=== PATIENT | female | born 1965 | race Asian ===

== ENCOUNTER 2025-03-07 22:09 | Outpatient (CLI) | payer OTHER, SELFPAY | END 2025-03-07 22:10 | disposition home or self-care (01) | LOC: AMB 03-15 13:49 | PROVIDERS: Visit Provider Family Medicine | DX: S09.90XA Unspecified injury of head, initial encounter (principal); W18.30XA Fall on same level, unspecified, initial encounter; Y93.89 Activity, other specified; Y92.838 Other recreation area as the place of occurrence of the external cause | CPT/HCPCS: A0425; A0427 ==

== ENCOUNTER 2025-03-07 22:37 | Emergency (ER) | payer OTHER, SELFPAY ==
[2025-03-07] VITALS (12 sets, daily range): BP systolic 139–167; BP diastolic 85–95; PULSE 79–82; RESP 16–23; TEMP 37.1; O2SAT 90–99
--- NOTE | 2025-03-07 22:46 | CRLHL7_ITS ---
For Patients: As a result of the Century Cures Act, medical imaging exams and procedure reports are released immediately into your electronic medical record. You may view this report before your referring provider. If you have questions, please contact your health care provider. INDICATION: Fall TECHNIQUE: Non-contrast CT of the head is submitted. COMPARISON: None. FINDINGS: Trace hyperdensity along the inferior aspect of the falx cerebri (8/35). The ventricles, sulci and gyri are of normal size, shape and contour. Midline structures are centrally located. Basal cisterns are widely patent. Left parietal scalp swelling. No skull fractures. IMPRESSION: Trace hyperdensity along the inferior aspect of the falx cerebri, which may reflect small volume acute subdural hemorrhage. No associated mass effect. These findings were discussed with Dr. Rowland at 11:27 p.m. Please note that all CT scans at this facility use dose modulation, iterative reconstruction, and/or weight-based dosing when appropriate to reduce radiation dose to as low as reasonably achievable. Dictated by Giuseppe Hester MD @ 03/07/2025 11:28:27 PM (Electronically Signed)
--- NOTE | 2025-03-07 22:46 | CRLHL7_ITS ---
For Patients: As a result of the Century Cures Act, medical imaging exams and procedure reports are released immediately into your electronic medical record. You may view this report before your referring provider. If you have questions, please contact your health care provider. INDICATION: Fall. TECHNIQUE: CT cervical spine without contrast. COMPARISON: None. FINDINGS: Vertebrae: Alignment is normal. There are no fractures or suspicious bony lesions. Discs and facet joints: There are diffuse degenerative changes in the disc spaces and facet joints. Extraspinal findings: No acute findings. Postsurgical changes of left hemithyroidectomy. IMPRESSION: 1. No sign of acute injury. 2. Multilevel degenerative spondylosis. Please note that all CT scans at this facility use dose modulation, iterative reconstruction, and/or weight-based dosing when appropriate to reduce radiation dose to as low as reasonably achievable. Dictated by Giuseppe Hester MD @ 03/07/2025 11:30:22 PM (Electronically Signed)
[2025-03-07] MEDS: MORPHINE 4 MG/ML INJ IVP (23:23)
--- NOTE | 2025-03-07 23:36 | ED.FALL ---
HPI - Fall General Date Seen: 03/07/25 <Blake Rowland DO - Last Filed: 03/08/25 00:03> Chief Complaint: Fall/Minor Trauma <Blake Rowland DO - Last Filed: 03/08/25 00:03> Stated Complaint: fall <Blake Rowland DO - Last Filed: 03/08/25 00:03> Time Seen by Provider: 03/07/25 22:46 <Blake Rowland DO - Last Filed: 03/08/25 00:03> Source: patient, family and EMS <Blake Rowland DO - Last Filed: 03/08/25 00:03> Mode of arrival: EMS <Blake Rowland DO - Last Filed: 03/08/25 00:03> Limitations: no limitations <Blake Rowland DO - Last Filed: 03/08/25 00:03> Related Data Home Medications: Home Medications ?Medication ?Instructions ?Recorded ?Confirmed amlodipine 5 mg tablet 5 mg PO DAILY 03/07/25 03/07/25 fluoxetine 40 mg capsule 40 mg PO DAILY 03/07/25 03/07/25 hydrochlorothiazide 25 mg tablet 25 mg PO DAILY 03/07/25 03/07/25 hydroxyzine HCl 10 mg tablet 10 mg PO QHS 03/07/25 03/07/25 losartan 100 mg tablet (Cozaar) 100 mg PO DAILY 03/07/25 03/07/25 modafinil 100 mg tablet 100 mg PO BID PRN 03/07/25 03/07/25 tirzepatide (weight loss) 2.5 2.5 mg subcut 03/07/25 mg/0.5 mL subcutaneous pen injector (Zepbound) tirzepatide 7.5 mg/0.5 mL 7.5 mg subcut QWEEK 03/07/25 03/07/25 subcutaneous pen injector <Blake Rowland DO - Last Filed: 03/08/25 00:03> Allergies/Adverse Reactions: Allergies Allergy/AdvReac Type Severity Reaction Status Date / Time No Known Drug Allergies Allergy Verified 03/07/25 23:49 <Blake Rowland DO - Last Filed: 03/08/25 00:03> PFSH PFSH Social History: Social History Smoking Status: Never smoker Do you use any of these nicotine containing products: None Second hand tobacco smoke exposure: No How often do you have a drink containing alcohol: never How often do you have six or more drinks on one occasion: Never AUDIT-C Alcohol total score: 0 Non-prescribed substance use: denies use service: No <Blake Rowland DO - Last Filed: 03/08/25 00:03> Exam Narrative: Exam Narrative: Airway: Airway patent, Breathing: Good bilateral air movement, no signs of tracheal deviation normal appearing chest wall movement, oxygenating appropriately Circulation: No signs of obvious hemorrhage, pulses +2 bilaterally in all extremities Disability: GCS 15 Constitutional: Pt is oriented to person, place, and time. Pt appears well-developed and well-nourished. HENT: Head: Normocephalic and atraumatic. Mouth/Throat: Oropharynx is clear and moist. No hematomas or lacerations or abrasions to face or scalp OP clear, no blood, no malocclusion, dentition intact Nares clear, no nasal septal hematoma TMs clear, no hemotympanum Midface stable Eyes: Conjunctivae and EOM are normal. Pupils are equal, round, and reactive to light. Neck: C-spine midline nontender, no step-offs Cardiovascular: Normal rate, regular rhythm and normal heart sounds. Pulmonary/Chest: Effort normal and breath sounds normal. No respiratory distress. He has no wheezes. CTA bilaterally Abdominal: Soft. Bowel sounds are normal. Pt exhibits no distension. There is no tenderness. Musculoskeletal: No bony tenderness to extremities, no deformities, full ROM extremities, Chest wall stable, Pelvis stable and non-tender, mild midline cervical tenderness. No step-offs. No tenderness or step-offs noted to rest of spine Neurological: Pt is alert and oriented to person, place, and time., Moving all extremities willfully, able to wiggle all fingers and toes, Sensation grossly intact, GCS 15 Skin: Skin is warm and dry. No abrasions, no lacerations Psychiatric: Behavior is appropriate for situation <Blake Rowland DO - Last Filed: 03/08/25 00:03> Const: Vital Signs, click to edit/add: Vital Signs - 24 hr 03/07/25 22:47 03/07/25 23:13 03/07/25 23:20 Temperature 98.8 F Pulse Rate 82 Pulse Rate [Left P ulse Oximeter] 79 81 Respiratory Rate 20 18 22 Blood Pressure Blood Pressure [Le ft Upper Arm] 167/95 H 142/92 H Pulse Oximetry 96 97 98 Oxygen Delivery Me thod Room Air Room Air 03/07/25 23:22 03/07/25 23:30 03/07/25 23:31 Temperature Pulse Rate 82 81 82 Pulse Rate [Left P ulse Oximeter] Respiratory Rate 23 18 Blood Pressure 139/87 149/92 H Blood Pressure [Le ft Upper Arm] Pulse Oximetry 99 95 90 Oxygen Delivery Me thod 03/07/25 23:40 03/07/25 23:42 03/07/25 23:44 Temperature Pulse Rate 80 81 Pulse Rate [Left P ulse Oximeter] 81 Respiratory Rate 20 16 Blood Pressure 150/90 H Blood Pressure [Le ft Upper Arm] 150/90 H Pulse Oximetry 96 96 97 Oxygen Delivery Me od Room Air 03/07/25 23:50 03/07/25 23:52 03/07/25 23:57 Temperature Pulse Rate 80 80 Pulse Rate [Left P ulse Oximeter] 80 Respiratory Rate 16 Blood Pressure 142/85 H Blood Pressure [Le ft Upper Arm] 142/85 H Pulse Oximetry 94 97 97 Oxygen Delivery Me thod Room Air 03/08/25 00:00 03/08/25 00:01 03/08/25 00:01 Temperature Pulse Rate 82 81 81 Pulse Rate [Left P ulse Oximeter] Respiratory Rate 17 13 13 Blood Pressure 144/89 H 144/89 H Blood Pressure [Le ft Upper Arm] Pulse Oximetry 97 98 98 Oxygen Delivery Me thod 03/08/25 00:01 03/08/25 00:10 03/08/25 00:12 Temperature Pulse Rate 81 80 77 Pulse Rate [Left P ulse Oximeter] Respiratory Rate 13 24 Blood Pressure 144/89 H 144/86 H Blood Pressure [Le ft Upper Arm] Pulse Oximetry 98 94 94 Oxygen Delivery Me thod 03/08/25 00:20 03/08/25 00:22 03/08/25 00:30 Temperature Pulse Rate 80 82 79 Pulse Rate [Left P ulse Oximeter] Respiratory Rate Blood Pressure 142/84 H Blood Pressure [Le ft Upper Arm] Pulse Oximetry 94 95 97 Oxygen Delivery Me thod 03/08/25 00:32 03/08/25 00:34 03/08/25 00:40 Temperature Pulse Rate 80 80 Pulse Rate [Left P ulse Oximeter] 78 Respiratory Rate 16 Blood Pressure 141/88 H Blood Pressure [Le ft Upper Arm] 141/88 H Pulse Oximetry 94 98 95 Oxygen Delivery Me thod Room Air 03/08/25 00:41 03/08/25 00:50 03/08/25 00:52 Temperature Pulse Rate 79 81 75 Pulse Rate [Left P ulse Oximeter] Respiratory Rate Blood Pressure 142/88 H 157/93 H Blood Pressure [Le ft Upper Arm] Pulse Oximetry 95 95 96 Oxygen Delivery Me thod 03/08/25 01:00 03/08/25 01:02 03/08/25 01:05 Temperature Pulse Rate 80 82 Pulse Rate [Left P ulse Oximeter] 80 Respiratory Rate 16 Blood Pressure 156/92 H Blood Pressure [Le ft Upper Arm] 156/92 H Pulse Oximetry 98 95 97 Oxygen Delivery Me od Room Air 03/08/25 01:10 03/08/25 01:12 03/08/25 01:20 Temperature Pulse Rate 83 80 82 Pulse Rate [Left P ulse Oximeter] Respiratory Rate Blood Pressure 139/85 Blood Pressure [Le ft Upper Arm] Pulse Oximetry 93 96 93 Oxygen Delivery Me od 03/08/25 01:21 03/08/25 01:30 03/08/25 01:31 Temperature Pulse Rate 83 82 83 Pulse Rate [Left P ulse Oximeter] Respiratory Rate Blood Pressure 138/84 133/78 Blood Pressure [Le ft Upper Arm] Pulse Oximetry 93 94 96 Oxygen Delivery Me od 03/08/25 01:40 03/08/25 01:42 03/08/25 01:50 Temperature Pulse Rate 88 86 86 Pulse Rate [Left P ulse Oximeter] Respiratory Rate Blood Pressure 134/81 Blood Pressure [Le ft Upper Arm] Pulse Oximetry 94 92 92 Oxygen Delivery Me thod 03/08/25 01:52 03/08/25 02:00 03/08/25 02:02 Temperature Pulse Rate 84 85 90 Pulse Rate [Left P ulse Oximeter] Respiratory Rate Blood Pressure 130/79 134/77 Blood Pressure [Le ft Upper Arm] Pulse Oximetry 93 94 92 Oxygen Delivery Me thod 03/08/25 02:10 03/08/25 02:12 03/08/25 02:20 Temperature Pulse Rate 93 90 86 Pulse Rate [Left P ulse Oximeter] Respiratory Rate 13 Blood Pressure 129/76 Blood Pressure [Le ft Upper Arm] Pulse Oximetry 92 91 96 Oxygen Delivery Me thod 03/08/25 02:22 03/08/25 02:30 03/08/25 02:32 Temperature Pulse Rate 88 89 88 Pulse Rate [Left P ulse Oximeter] Respiratory Rate 17 Blood Pressure 125/83 125/85 Blood Pressure [Le ft Upper Arm] Pulse Oximetry 96 93 93 Oxygen Delivery Me thod 03/08/25 02:40 03/08/25 02:41 03/08/25 02:50 Temperature Pulse Rate 89 88 86 Pulse Rate [Left P ulse Oximeter] Respiratory Rate Blood Pressure 146/85 H Blood Pressure [Le ft Upper Arm] Pulse Oximetry 94 91 92 Oxygen Delivery Me thod 03/08/25 02:52 03/08/25 03:00 03/08/25 03:02 Temperature Pulse Rate 83 84 84 Pulse Rate [Left P ulse Oximeter] Respiratory Rate Blood Pressure 152/89 H 164/80 H Blood Pressure [Le ft Upper Arm] Pulse Oximetry 94 93 92 Oxygen Delivery Me thod 03/08/25 03:10 03/08/25 03:12 03/08/25 03:13 Temperature Pulse Rate 86 86 89 Pulse Rate [Left P ulse Oximeter] Respiratory Rate 20 Blood Pressure 133/83 Blood Pressure [Le ft Upper Arm] Pulse Oximetry 94 93 94 Oxygen Delivery Me thod 03/08/25 03:20 03/08/25 03:22 03/08/25 03:30 Temperature Pulse Rate 84 82 82 Pulse Rate [Left P ulse Oximeter] Respiratory Rate 23 18 Blood Pressure 164/96 H Blood Pressure [Le ft Upper Arm] Pulse Oximetry 92 94 91 Oxygen Delivery Me thod 03/08/25 03:32 03/08/25 03:40 03/08/25 03:41 Temperature Pulse Rate 81 81 80 Pulse Rate [Left P ulse Oximeter] Respiratory Rate Blood Pressure 152/89 H 154/93 H Blood Pressure [Le ft Upper Arm] Pulse Oximetry 92 93 92 Oxygen Delivery Me thod 03/08/25 03:50 03/08/25 03:52 03/08/25 04:00 Temperature Pulse Rate 81 80 81 Pulse Rate [Left P ulse Oximeter] Respiratory Rate 15 18 Blood Pressure 155/94 H Blood Pressure [Le ft Upper Arm] Pulse Oximetry 95 96 93 Oxygen Delivery Me thod 03/08/25 04:02 03/08/25 04:10 03/08/25 04:11 Temperature Pulse Rate 77 83 80 Pulse Rate [Left P ulse Oximeter] Respiratory Rate 15 20 20 Blood Pressure 146/94 H 153/84 H Blood Pressure [Le ft Upper Arm] Pulse Oximetry 94 91 93 Oxygen Delivery Me thod 03/08/25 04:20 03/08/25 04:22 03/08/25 04:30 Temperature Pulse Rate 77 77 77 Pulse Rate [Left P ulse Oximeter] Respiratory Rate 19 Blood Pressure 162/83 H Blood Pressure [Le ft Upper Arm] Pulse Oximetry 91 93 94 Oxygen Delivery Me thod 03/08/25 04:31 03/08/25 04:40 03/08/25 04:41 Temperature Pulse Rate 75 76 79 Pulse Rate [Left P ulse Oximeter] Respiratory Rate 20 22 19 Blood Pressure 166/79 H 148/75 H Blood Pressure [Le ft Upper Arm] Pulse Oximetry 95 92 95 Oxygen Delivery Me thod 03/08/25 04:50 03/08/25 04:52 03/08/25 05:00 Temperature Pulse Rate 81 76 77 Pulse Rate [Left P ulse Oximeter] Respiratory Rate 20 22 Blood Pressure 135/91 H Blood Pressure [Le ft Upper Arm] Pulse Oximetry 96 91 91 Oxygen Delivery Me thod 03/08/25 05:02 03/08/25 05:10 03/08/25 05:22 Temperature Pulse Rate 72 75 Pulse Rate [Left P ulse Oximeter] Respiratory Rate 20 20 Blood Pressure 119/93 H Blood Pressure [Le ft Upper Arm] Pulse Oximetry 95 93 Oxygen Delivery Me thod 03/08/25 05:23 Temperature Pulse Rate 65 Pulse Rate [Left P ulse Oximeter] Respiratory Rate 18 Blood Pressure 137/84 Blood Pressure [Le ft Upper Arm] Pulse Oximetry 93 Oxygen Delivery Me thod <Blake Rowland, - Last Filed: 03/08/25 00:03> Vital Signs, click to edit/add: Vital Signs - 24 hr 03/07/25 22:47 03/07/25 23:13 03/07/25 23:20 Temperature 98.8 F Pulse Rate 82 Pulse Rate [Left P ulse Oximeter] 79 81 Respiratory Rate 20 18 22 Blood Pressure Blood Pressure [Le ft Upper Arm] 167/95 H 142/92 H Pulse Oximetry 96 97 98 Oxygen Delivery Me thod Room Air Room Air 03/07/25 23:22 03/07/25 23:30 03/07/25 23:31 Temperature Pulse Rate 82 81 82 Pulse Rate [Left P ulse Oximeter] Respiratory Rate 23 18 Blood Pressure 139/87 149/92 H Blood Pressure [Le ft Upper Arm] Pulse Oximetry 99 95 90 Oxygen Delivery Me thod 03/07/25 23:40 03/07/25 23:42 03/07/25 23:44 Temperature Pulse Rate 80 81 Pulse Rate [Left P ulse Oximeter] 81 Respiratory Rate 20 16 Blood Pressure 150/90 H Blood Pressure [Le ft Upper Arm] 150/90 H Pulse Oximetry 96 96 97 Oxygen Delivery Me od Room Air 03/07/25 23:50 03/07/25 23:52 03/07/25 23:57 Temperature Pulse Rate 80 80 Pulse Rate [Left P ulse Oximeter] 80 Respiratory Rate 16 Blood Pressure 142/85 H Blood Pressure [Le ft Upper Arm] 142/85 H Pulse Oximetry 94 97 97 Oxygen Delivery Me thod Room Air 03/08/25 00:00 03/08/25 00:01 03/08/25 00:01 Temperature Pulse Rate 82 81 81 Pulse Rate [Left P ulse Oximeter] Respiratory Rate 17 13 13 Blood Pressure 144/89 H 144/89 H Blood Pressure [Le ft Upper Arm] Pulse Oximetry 97 98 98 Oxygen Delivery Me thod 03/08/25 00:01 03/08/25 00:10 03/08/25 00:12 Temperature Pulse Rate 81 80 77 Pulse Rate [Left P ulse Oximeter] Respiratory Rate 13 24 Blood Pressure 144/89 H 144/86 H Blood Pressure [Le ft Upper Arm] Pulse Oximetry 98 94 94 Oxygen Delivery Me thod 03/08/25 00:20 03/08/25 00:22 03/08/25 00:30 Temperature Pulse Rate 80 82 79 Pulse Rate [Left P ulse Oximeter] Respiratory Rate Blood Pressure 142/84 H Blood Pressure [Le ft Upper Arm] Pulse Oximetry 94 95 97 Oxygen Delivery Me thod 03/08/25 00:32 03/08/25 00:34 03/08/25 00:40 Temperature Pulse Rate 80 80 Pulse Rate [Left P ulse Oximeter] 78 Respiratory Rate 16 Blood Pressure 141/88 H Blood Pressure [Le ft Upper Arm] 141/88 H Pulse Oximetry 94 98 95 Oxygen Delivery Me thod Room Air 03/08/25 00:41 03/08/25 00:50 03/08/25 00:52 Temperature Pulse Rate 79 81 75 Pulse Rate [Left P ulse Oximeter] Respiratory Rate Blood Pressure 142/88 H 157/93 H Blood Pressure [Le ft Upper Arm] Pulse Oximetry 95 95 96 Oxygen Delivery Me thod 03/08/25 01:00 03/08/25 01:02 03/08/25 01:05 Temperature Pulse Rate 80 82 Pulse Rate [Left P ulse Oximeter] 80 Respiratory Rate 16 Blood Pressure 156/92 H Blood Pressure [Le ft Upper Arm] 156/92 H Pulse Oximetry 98 95 97 Oxygen Delivery Me thod Room Air 03/08/25 01:10 03/08/25 01:12 03/08/25 01:20 Temperature Pulse Rate 83 80 82 Pulse Rate [Left P ulse Oximeter] Respiratory Rate Blood Pressure 139/85 Blood Pressure [Le ft Upper Arm] Pulse Oximetry 93 96 93 Oxygen Delivery Me thod 03/08/25 01:21 03/08/25 01:30 03/08/25 01:31 Temperature Pulse Rate 83 82 83 Pulse Rate [Left P ulse Oximeter] Respiratory Rate Blood Pressure 138/84 133/78 Blood Pressure [Le ft Upper Arm] Pulse Oximetry 93 94 96 Oxygen Delivery Me thod 03/08/25 01:40 03/08/25 01:42 03/08/25 01:50 Temperature Pulse Rate 88 86 86 Pulse Rate [Left P ulse Oximeter] Respiratory Rate Blood Pressure 134/81 Blood Pressure [Le ft Upper Arm] Pulse Oximetry 94 92 92 Oxygen Delivery Me thod 03/08/25 01:52 03/08/25 02:00 03/08/25 02:02 Temperature Pulse Rate 84 85 90 Pulse Rate [Left P ulse Oximeter] Respiratory Rate Blood Pressure 130/79 134/77 Blood Pressure [Le ft Upper Arm] Pulse Oximetry 93 94 92 Oxygen Delivery Me thod 03/08/25 02:10 03/08/25 02:12 03/08/25 02:20 Temperature Pulse Rate 93 90 86 Pulse Rate [Left P ulse Oximeter] Respiratory Rate 13 Blood Pressure 129/76 Blood Pressure [Le ft Upper Arm] Pulse Oximetry 92 91 96 Oxygen Delivery Me thod 03/08/25 02:22 03/08/25 02:30 03/08/25 02:32 Temperature Pulse Rate 88 89 88 Pulse Rate [Left P ulse Oximeter] Respiratory Rate 17 Blood Pressure 125/83 125/85 Blood Pressure [Le ft Upper Arm] Pulse Oximetry 96 93 93 Oxygen Delivery Me thod 03/08/25 02:40 03/08/25 02:41 03/08/25 02:50 Temperature Pulse Rate 89 88 86 Pulse Rate [Left P ulse Oximeter] Respiratory Rate Blood Pressure 146/85 H Blood Pressure [Le ft Upper Arm] Pulse Oximetry 94 91 92 Oxygen Delivery Me thod 03/08/25 02:52 03/08/25 03:00 03/08/25 03:02 Temperature Pulse Rate 83 84 84 Pulse Rate [Left P ulse Oximeter] Respiratory Rate Blood Pressure 152/89 H 164/80 H Blood Pressure [Le ft Upper Arm] Pulse Oximetry 94 93 92 Oxygen Delivery Me thod 03/08/25 03:10 03/08/25 03:12 03/08/25 03:13 Temperature Pulse Rate 86 86 89 Pulse Rate [Left P ulse Oximeter] Respiratory Rate 20 Blood Pressure 133/83 Blood Pressure [Le ft Upper Arm] Pulse Oximetry 94 93 94 Oxygen Delivery Me thod 03/08/25 03:20 03/08/25 03:22 03/08/25 03:30 Temperature Pulse Rate 84 82 82 Pulse Rate [Left P ulse Oximeter] Respiratory Rate 23 18 Blood Pressure 164/96 H Blood Pressure [Le ft Upper Arm] Pulse Oximetry 92 94 91 Oxygen Delivery Me thod 03/08/25 03:32 03/08/25 03:40 03/08/25 03:41 Temperature Pulse Rate 81 81 80 Pulse Rate [Left P ulse Oximeter] Respiratory Rate Blood Pressure 152/89 H 154/93 H Blood Pressure [Le ft Upper Arm] Pulse Oximetry 92 93 92 Oxygen Delivery Me thod 03/08/25 03:50 03/08/25 03:52 03/08/25 04:00 Temperature Pulse Rate 81 80 81 Pulse Rate [Left P ulse Oximeter] Respiratory Rate 15 18 Blood Pressure 155/94 H Blood Pressure [Le ft Upper Arm] Pulse Oximetry 95 96 93 Oxygen Delivery Me thod 03/08/25 04:02 03/08/25 04:10 03/08/25 04:11 Temperature Pulse Rate 77 83 80 Pulse Rate [Left P ulse Oximeter] Respiratory Rate 15 20 20 Blood Pressure 146/94 H 153/84 H Blood Pressure [Le ft Upper Arm] Pulse Oximetry 94 91 93 Oxygen Delivery Me thod 03/08/25 04:20 03/08/25 04:22 03/08/25 04:30 Temperature Pulse Rate 77 77 77 Pulse Rate [Left P ulse Oximeter] Respiratory Rate 19 Blood Pressure 162/83 H Blood Pressure [Le ft Upper Arm] Pulse Oximetry 91 93 94 Oxygen Delivery Me thod 03/08/25 04:31 03/08/25 04:40 03/08/25 04:41 Temperature Pulse Rate 75 76 79 Pulse Rate [Left P ulse Oximeter] Respiratory Rate 20 22 19 Blood Pressure 166/79 H 148/75 H Blood Pressure [Le ft Upper Arm] Pulse Oximetry 95 92 95 Oxygen Delivery Me thod 03/08/25 04:50 03/08/25 04:52 03/08/25 05:00 Temperature Pulse Rate 81 76 77 Pulse Rate [Left P ulse Oximeter] Respiratory Rate 20 22 Blood Pressure 135/91 H Blood Pressure [Le ft Upper Arm] Pulse Oximetry 96 91 91 Oxygen Delivery Me thod 03/08/25 05:02 03/08/25 05:10 03/08/25 05:22 Temperature Pulse Rate 72 75 Pulse Rate [Left P ulse Oximeter] Respiratory Rate 20 20 Blood Pressure 119/93 H Blood Pressure [Le ft Upper Arm] Pulse Oximetry 95 93 Oxygen Delivery Me thod 03/08/25 05:23 Temperature Pulse Rate 65 Pulse Rate [Left P ulse Oximeter] Respiratory Rate 18 Blood Pressure 137/84 Blood Pressure [Le ft Upper Arm] Pulse Oximetry 93 Oxygen Delivery Me thod <Kirit Huertas MD - Last Filed: 03/08/25 06:12> Course Reevaluation(s) Time of Reevaluation #2: 23:51 <Kirit Huertas MD - Last Filed: 03/08/25 06:12> Reevaluation #2: Sign-out from Dr. Rowland. Briefly 60-year-old female not on blood thinners who fell about 3 ft, hit her head, has a small subdural. Care was discussed with Neurosurgery, recommends repeat head CT in 6 hours and if stable patient can be discharged with outpatient follow-up. Blood pressure to be maintained with systolic less than 160, blood head of bed elevated 30?. <Kirit Huertas MD - Last Filed: 03/08/25 06:12> Time of Reevaluation #3: 06:04 <Kirit Huertas MD - Last Filed: 03/08/25 06:12> Reevaluation #3: Repeat head CT demonstrates improved but persistent interhemispheric subdural hematoma. Care discussed with [facility] neuro surgery who recommends primary care follow-up and referral to TBI/concussion Clinic if needed. <Kirit Huertas MD - Last Filed: 03/08/25 06:12> Vital Signs Vital signs: Initial Vital Signs Temperature 98.8 F 03/07/25 22:47 Temperature Source Temporal Artery Scan 03/07/25 22:47 Pulse Rate 79 03/07/25 22:47 Respiratory Rate 20 03/07/25 22:47 Blood Pressure 167/95 H 03/07/25 22:47 Blood Pressure Mean 119 H 03/07/25 22:47 Pulse Oximetry 96 03/07/25 22:47 Oxygen Delivery Method Room Air 03/07/25 22:47 Vital Signs Temperature 98.8 F 03/07/25 22:47 Pulse Rate 79 03/07/25 22:47 Respiratory Rate 20 03/07/25 22:47 Blood Pressure 167/95 H 03/07/25 22:47 Pulse Oximetry 96 03/07/25 22:47 Oxygen Delivery Method Room Air 03/07/25 22:47 Temperature 98.8 F 03/07/25 22:47 Pulse Rate 65 03/08/25 05:23 Respiratory Rate 18 03/08/25 05:23 Blood Pressure 137/84 03/08/25 05:23 Pulse Oximetry 93 03/08/25 05:23 Oxygen Delivery Method Room Air 03/08/25 01:05 <Blake Rowland DO - Last Filed: 03/08/25 00:03> Initial Vital Signs Temperature 98.8 F 03/07/25 22:47 Temperature Source Temporal Artery Scan 03/07/25 22:47 Pulse Rate 79 03/07/25 22:47 Respiratory Rate 20 03/07/25 22:47 Blood Pressure 167/95 H 03/07/25 22:47 Blood Pressure Mean 119 H 03/07/25 22:47 Pulse Oximetry 96 03/07/25 22:47 Oxygen Delivery Method Room Air 03/07/25 22:47 Vital Signs Temperature 98.8 F 03/07/25 22:47 Pulse Rate 79 03/07/25 22:47 Respiratory Rate 20 03/07/25 22:47 Blood Pressure 167/95 H 03/07/25 22:47 Pulse Oximetry 96 03/07/25 22:47 Oxygen Delivery Method Room Air 03/07/25 22:47 Temperature 98.8 F 03/07/25 22:47 Pulse Rate 65 03/08/25 05:23 Respiratory Rate 18 03/08/25 05:23 Blood Pressure 137/84 03/08/25 05:23 Pulse Oximetry 93 03/08/25 05:23 Oxygen Delivery Method Room Air 03/08/25 01:05 <Kirit Huertas MD - Last Filed: 03/08/25 06:12> Medications Administered Medications: Generic Name Dose Route Start Last Admin Trade Name Freq PRN Reason Stop Dose Admin Morphine Sulfate 4 mg 03/08/25 03:19 03/08/25 03:22 Morphine 4 Mg/Ml Inj IVP 4 mg Q4H PRN Administration pain Discontinued Medications Generic Name Dose Route Start Last Admin Trade Name Freq PRN Reason Stop Dose Admin Morphine Sulfate 4 mg 03/07/25 23:20 03/07/25 23:23 Morphine 4 Mg/Ml Inj IVP 03/07/25 23:21 4 mg ONCE ONE Administration <Blake Rowland DO - Last Filed: 03/08/25 00:03> Generic Name Dose Route Start Last Admin Trade Name Freq PRN Reason Stop Dose Admin Morphine Sulfate 4 mg 03/08/25 03:19 03/08/25 03:22 Morphine 4 Mg/Ml Inj IVP 4 mg Q4H PRN Administration pain Discontinued Medications Generic Name Dose Route Start Last Admin Trade Name Freq PRN Reason Stop Dose Admin Morphine Sulfate 4 mg 03/07/25 23:20 03/07/25 23:23 Morphine 4 Mg/Ml Inj IVP 03/07/25 23:21 4 mg ONCE ONE Administration <Kirit Huertas MD - Last Filed: 03/08/25 06:12> MDM - Fall MDM Narrative Medical decision making narrative: Patient is a 60-year-old female presenting to the emergency department after a fall. EMS states she was initially disoriented but has since been acting normally. Her is at bedside states she is acting at her baseline. She states her only pain at this time is to her neck. Also states she has some pain to the back of her head. Rest may exam shows no concerning abnormalities. I will do CT scan of her head and cervical spine. She was starting to complain more what pain and morphine was given. CT scan of the cervical spine shows no acute concerning abnormalities. CT scan of the head shows a possible small subdural hematoma. She is not having any neurological symptoms at this time. I did speak to the trauma surgeon at [facility], the patient's preferential destination if she would be transferred, and was informed to repeat head CT in 6 hours and if it is normal and she is not having any further symptoms she can follow-up outpatient. She will be signed out to my colleague <Blake Rowland, - Last Filed: 03/08/25 00:03> Imaging Data CT scan - head: Attestation: I have reviewed the pertinent imaging results. <Blake Rowland DO - Last Filed: 03/08/25 00:03> Radiologist's impression: Trace hyperdensity along the inferior aspect of the falx cerebri, which may reflect small volume acute subdural hemorrhage. No associated mass effect. These findings were discussed with Dr. Rowland at 11:27 p.m. Please note that all CT scans at this facility use dose modulation, iterative reconstruction, and/or weight-based dosing when appropriate to reduce radiation dose to as low as reasonably achievable. Dictated by Giuseppe Hester MD @ 03/07/2025 11:28:27 PM <Blake Rowland DO - Last Filed: 03/08/25 00:03> CT scan cervical spine: Attestation: I have reviewed the pertinent imaging results. <Blake Rowland DO - Last Filed: 03/08/25 00:03> Radiologist's impression: 1. No sign of acute injury. 2. Multilevel degenerative spondylosis. Please note that all CT scans at this facility use dose modulation, iterative reconstruction, and/or weight-based dosing when appropriate to reduce radiation dose to as low as reasonably achievable. Dictated by Giuseppe Hester MD @ 03/07/2025 11:30:22 PM <Blake Rowland DO - Last Filed: 03/08/25 00:03> Critical Care Time Critical Care Time Critical Care Time: Yes (Intracranial hemorrhage) Attestation: The patient required my highest level preparedness to intervene emergently and I personally spent this critical care time directly and personally managing the patient. This critical care time included: Obtaining a history; Examining the patient; Pulse oximetry; Ordering and reviewing of studies; Arranging urgent treatment with development of a management plan; Evaluation of patients response to treatment; Frequent reassessment discussions with other providers. This critical care time was performed to assess and manage the high probability of imminent life-threatening deterioration that could result in multiorgan failure. It was exclusive of separate billable procedures and treating other patients and teaching time. <Kirit Huertas MD - Last Filed: 03/08/25 06:12> Total Critical Care Time in Minutes: 35 <Blake Rowland DO - Last Filed: 03/08/25 00:03> 50 <Kirit Huertas MD - Last Filed: 03/08/25 06:12> Discharge Plan Discharge Clinical Impression: Acute subdural hematoma, Fall <Blake Rowland DO - Last Filed: 03/08/25 00:03> Patient Disposition: Home, Self-Care <Blake Rowland DO - Last Filed: 03/08/25 00:03> Condition: Stable <Blake Rowland DO - Last Filed: 03/08/25 00:03> Instructions: Fall Prevention (ED) <Blake Rowland DO - Last Filed: 03/08/25 00:03> Additional Instructions: It appears that you have a small brain bleed called a subdural hematoma. On your repeat CT scan it has decreased in size. You can go home today. Take Tylenol as needed for pain, avoid aspirin. You may take oxycodone as prescribed for more severe pain. Follow-up with your primary care provider this week. <Blake Rowland DO - Last Filed: 03/08/25 00:03> Activity Level: Activity as Tolerated <Blake Rowland DO - Last Filed: 03/08/25 00:03> Activity as Tolerated <Kirit Huertas MD - Last Filed: 03/08/25 06:12> Discharge Diet: Regular <Blake Rowland DO - Last Filed: 03/08/25 00:03> Regular <Kirit Huertas MD - Last Filed: 03/08/25 06:12> Prescriptions: No Action hydrochlorothiazide 25 mg tablet 25 mg PO DAILY modafinil 100 mg tablet 100 mg PO BID PRN fluoxetine 40 mg capsule 40 mg PO DAILY amlodipine 5 mg tablet 5 mg PO DAILY losartan [Cozaar] 100 mg tablet 100 mg PO DAILY hydroxyzine HCl 10 mg tablet 10 mg PO QHS tirzepatide 7.5 mg/0.5 mL pen injector 7.5 mg subcut QWEEK Zepbound 2.5 mg/0.5 mL pen injector 2.5 mg subcut <Blake Rowland DO - Last Filed: 03/08/25 00:03> Follow Up/Referrals: Provider,Not a Local [Primary Care Provider, Family Practice] <Blake Rowland DO - Last Filed: 03/08/25 00:03> Stand Alone Forms: My[facility] Info Instructions <Blake Rowland DO - Last Filed: 03/08/25 00:03>
[2025-03-08] VITALS (68 sets, daily range): BP systolic 119–166; BP diastolic 75–96; PULSE 65–93; RESP 13–24; O2SAT 91–98
[2025-03-08] MEDS: MORPHINE 4 MG/ML INJ IVP (03:22)
--- NOTE | 2025-03-08 05:00 | CRLHL7_ITS ---
For Patients: As a result of the Century Cures Act, medical imaging exams and procedure reports are released immediately into your electronic medical record. You may view this report before your referring provider. If you have questions, please contact your health care provider. INDICATION: Follow-up subdural hematoma COMPARISON: March 07, 2025 TECHNIQUE: CT examination of the head was performed as axial sections without intravenous contrast. Images were obtained from the vertex of the skull through the skull base. The study was performed March 08, 2025. Please note that all CT scans at this facility use dose modulation, iterative reconstruction, and/or weight-based dosing when appropriate to reduce radiation dose to as low as reasonably achievable. FINDINGS: A scant amount of interhemispheric subdural hemorrhage is noted. This is best seen on series 2, image 35 and series 6, image 34. This is slightly smaller than previously. There is no new hemorrhage. The brain shows no sign of mass lesion, mass effect, or edema There are involutional changes. There is mild cortical atrophy and there is mild white matter disease. There is no hydrocephalus. The visualized portions of the orbits are normal in appearance. The osseous structures are normal in appearance with no sign of abnormality in the skull base or calvarium. Subcutaneous hematoma in the left parieto-occipital location IMPRESSION: Persistent but improved small interhemispheric subdural hematoma. Please note that all CT scans at this facility use dose modulation, iterative reconstruction, and/or weight-based dosing when appropriate to reduce radiation dose to as low as reasonably achievable. Dictated by Elijah Hernández MD @ 03/08/2025 5:48:45 AM (Electronically Signed)
== END 2025-03-08 06:59 | disposition home or self-care (01) ==
PROVIDERS: Emergency Provider Student in an Organized Health Care Education/Training Program
DX: S06.5X0A Traumatic subdural hemorrhage without loss of consciousness, initial encounter (principal); W17.89XA Other fall from one level to another, initial encounter
CPT/HCPCS: 70450; 72125; 96374; 96376; 99285; 99291; G0390; J2270